=== PATIENT | male | born 1970 | race Hispanic/Latino ===

== ENCOUNTER 2023-08-26 09:51 | Day surgery (SDC) | payer SELFPAY ==
[2023-08-26 11:07] LABS: Bilirubin Negative (Negative); Blood, Urine Large (Negative); Glucose, Urine (Dipstick) Negative (Negative); Ketone, Urine Negative (Negative); Leukocyte Negative (Negative); Nitrite Negative (Negative); Protein, Urine (Dipstick) Trace mg/dL (Neg-Trace); Specific Gravity, Urine 1.025 (1.005-1.030); Urobilinogen 0.2 mg/dL (Less than 2); pH, Urine 7.5 (5.0-9.0)
[2023-08-26 11:09] LABS: Clarity Hazy (Clear)
[2023-08-26 11:11] LABS: Bacteria/HPF Rare-Few HPF (None Seen); CAUTI Indications for Culture Dysuria,urgency,freq; Squamous Epithelial None Seen HPF (0-3); WBC/HPF 0-3 HPF (0-3)
[2023-08-26 11:12] LABS: Urine Culture Reflex No No
[2023-08-26] MEDS ORDERED: Tamsulosin HCl 0.4 MG CAP ONE (11:19)
[2023-08-26] MEDS ORDERED: Tamsulosin HCl 0.4 MG CAP PO SCH (11:30)
[2023-08-26] MEDS ORDERED: cefTRIAXone (ROCEPHIN) 2 GM VIAL ONE (12:56)
[2023-08-26] MEDS ORDERED: Sodium Chloride 0.9% 100 ML ONE (12:57)
[2023-08-26] MEDS ORDERED: PROPOFOL 20 ML ONE ×2 (13:13→13:38)
[2023-08-26] MEDS ORDERED: Lidocaine 1% PF 5 ML VIAL ONE (13:13)
[2023-08-26] MEDS ORDERED: Iopamidol 30 ML ONE (13:19)
[2023-08-26] MEDS ORDERED: fentaNYL PF 100 MCG/2 ML SYRINGE ONE ×2 (13:38→14:31)
[2023-08-26] MEDS ORDERED: Ondansetron PF 4 MG/2 ML Vial ONE (13:38)
[2023-08-26] MEDS ORDERED: Glycopyrrolate 0.2 MG/ML 5 ML SYRINGE ONE (14:24)
[2023-08-26] MEDS ORDERED: Esmolol 100 MG/10 ML VIAL ONE (14:53)
[2023-08-26] MEDS ORDERED: HYDROmorphone 2 MG/ML VIAL ONE (14:54)
[2023-08-26] MEDS ORDERED: diphenhydrAMINE 50 MG/ML VIAL ONE (15:52)
[2023-08-26] MEDS ORDERED: Oxybutynin 5 MG TAB ONE (16:00)
[2023-08-26] MEDS ORDERED: Phenazopyridine HCl 100 MG TAB ONE (16:00)
[2023-08-27 14:45] LABS: Chlam.trachomatis by PCR,Urine Not Detected (NotDetected); GC N.gonorrhoeae PCR,UrineVOID Not Detected (NotDetected)
== END 2023-08-26 17:45 | disposition home or self-care (01) ==
LOC: ERS 09:51 → SDC/OP 13:29 → ERS 13:29 → SDC/OP 17:45
PROVIDERS: ATTEND Urology
PROC: 0TFD8ZZ Fragmentation in Urethra, Via Natural or Artificial Opening Endoscopic (ICD-10-PCS; principal; 2023-08-26)
DX: N21.1 Calculus in urethra (principal)
CPT/HCPCS: 36415; 74176; 74420; 81001; 82365; 84153; 87086; 87491; 87591; 88300; C1769; J0696; J1170; J1200; J2405; J2704; J3490; Q9967